=== PATIENT | male | born 1985 | race Caucasian/White ===

== ENCOUNTER 2024-02-08 08:35 | Outpatient (CLI) | payer OTHER, SELFPAY | END 2024-02-08 08:36 | disposition home or self-care (01) | PROVIDERS: PCP Internal Medicine; Visit Provider Internal Medicine | DX: E78.5 Hyperlipidemia, unspecified (principal); R22.1 Localized swelling, mass and lump, neck | CPT/HCPCS: 80053; 80061; 84443 ==

== ENCOUNTER 2024-02-21 08:04 | Outpatient (CLI) | payer OTHER, SELFPAY ==
--- NOTE | 2024-02-21 08:00 | CRLHL7_ITS ---
For Patients: As a result of the Century Cures Act, medical imaging exams and procedure reports are released immediately into your electronic medical record. You may view this report before your referring provider. If you have questions, please contact your health care provider. INDICATION: TROUBLE SWALLOWING, FULLNESS/PAIN ON LEFT SIDE OF NECK FOR SEVERAL MONTHS, PAIN HAS DECREASED RECENTLY COMPARISON: none TECHNIQUE: CT ST Neck WITH 116 CC`S ISOVUE 370 Please note that all CT scans at this facility use dose modulation, iterative reconstruction, and/or weight-based dosing when appropriate to reduce radiation dose to as low as reasonably achievable. FINDINGS: Chronic dystrophic calcifications are present within the palatine tonsils bilaterally. No fluid collection or abscess. Salivary glands are normal. No suspicious lymph nodes. Thyroid normal. Normal visualized lungs. Sinuses clear. Visualized brain parenchyma unremarkable. Epiglottis normal. Normal vallecula and piriform sinuses. Disc space narrowing and posterior spurring C4-5. IMPRESSION: Chronic fullness of the palatine tonsils with associated dystrophic calcifications representing sequela of prior tonsillitis. No abscess. No suspicious lymph node. Please note that all CT scans at this facility use dose modulation, iterative reconstruction, and/or weight-based dosing when appropriate to reduce radiation dose to as low as reasonably achievable. Dictated by Andrew Cardona MD @ 02/21/2024 8:52:00 AM (Electronically Signed)
== END 2024-02-21 08:05 | disposition home or self-care (01) ==
LOC: CT 08:08
PROVIDERS: PCP Internal Medicine; Visit Provider Internal Medicine
DX: R22.1 Localized swelling, mass and lump, neck (principal); R13.10 Dysphagia, unspecified
CPT/HCPCS: 70491; Q9967